=== PATIENT | female | born 1955 | race Caucasian/White ===

== ENCOUNTER 2019-08-13 16:18 | Emergency (ER) | payer BC ==
[2019-08-13] MEDS ORDERED: Sodium Chloride 0.9% 1,000 ML IV ONE (16:28)
[2019-08-13] MEDS ORDERED: Morphine 2 MG/ML Syringe IVPUSH ONE ×2 (16:31→17:33)
[2019-08-13] MEDS ORDERED: Ondansetron 4 MG/2 ML SDV IVPUSH ONE (16:31)
--- NOTE | 2019-08-13 17:23 | CR ---
2 views of the portable right ankle. INDICATION: Injury IMPRESSION: Fracture dislocation. Posterior dislocation of the ankle with fractures of the lateral and posterior malleolus. FINDINGS: Osseous structures: Posterior dislocation of the talus and fractures of the distal fibula with involvement of the posterior malleolus. On the frontal view the alignment shows no lateral displacement or medial displacement. Soft tissue swelling is noted. Miscellaneous: Prior fixation screws are present at the base of the 1st metatarsal. Dictated by Juarez Rose MD @ Aug 13 2019 5:22PM Signed by Dr. Juarez Rose @ Aug 13 2019 5:22PM
--- NOTE | 2019-08-13 17:25 | CR ---
CHEST 1 VIEW AP INDICATION: Chest pain IMPRESSION: Normal heart size and vascular pattern. Lungs are clear of focal opacities. Previous surgery with heidi at the left lung apex. No pneumothorax or pleural abnormality. Dictated by Juarez Rose MD @ Aug 13 2019 5:23PM Signed by Dr. Juarez Rose @ Aug 13 2019 5:23PM
--- NOTE | 2019-08-13 17:40 | EDM.PDOC ---
ED HPI GENERAL MEDICAL PROBLEM - General Chief Complaint: Lower Extremity Injury/Pain Stated Complaint: SLIPPED, POSSIBLY BROKE ANKLE Time Seen by Provider: 08/13/19 16:26 Source of Information: Reports: Patient History Limitations: Reports: No Limitations - History of Present Illness INITIAL COMMENTS - FREE TEXT/NARRATIVE: HISTORY AND PHYSICAL: History of present illness: Patient is a 63-year-old female who presents to the ED via EMS today with concern of right ankle injury that occurred just prior to arrival to the ED. Patient states she was carrying paint cans down the stairs and missed a step and fell down 2 steps hurting her right ankle. Patient states she did not hit her head or lose consciousness. Patient denies any other symptoms or concerns at this time. Patient denies fever, chills, chest pain, shortness of breath, or cough. Denies headache, neck stiff ness, change in vision, syncope, or near syncope. Denies nausea, vomiting, abdominal pain, diarrhea, constipation, or dysuria. Has not noted any blood in urine or stool. Patient has been eating and drinking appropriately. Review of systems: As per history of present illness and below otherwise all systems reviewed and negative. Past medical history: As per history of present illness and as reviewed below otherwise noncontributory. Surgical history: As per history of present illness and as reviewed below otherwise noncontributory. Social history: See social history for further information Family history: As per history of present illness and as reviewed below otherwise noncontributory. Physical exam: General: Patient is alert, oriented, and in no acute distress. Patient laying comfortably on exam table. HEENT: Atraumatic, normocephalic, pupils equal and reactive bilaterally, negative for conjunctival pallor or scleral icterus, mucous membranes moist, TMs normal bilaterally, throat clear, neck supple, nontender, trachea midline. No drooling or trismus noted. No meningeal signs. No hot potato voice noted. Lungs: Clear to auscultation, breath sounds equal bilaterally, chest nontender. Heart: S1S2, regular rate and rhythm without overt murmur Abdomen: Soft, nondistended, nontender. Negative for masses or hepatosplenomegaly. Negative for costovertebral tenderness. Pelvis: Stable nontender. Genitourinary: Deferred. Rectal: Deferred. Skin: Intact, warm, dry. No lesions or rashes noted. Extremities: Negative for cords or calf pain. Neurovascular unremarkable. The right ankle is obviously dislocated with some bruising on the superior ankle. Dorsalis pedis and posterior tibial pulses are intact via Doppler. Patient does have full sensation of the foot and has full range of motion of the digits of the foot. Patient does have full range of motion of the complete upper extremities and left lower extremity without pain or difficulty. Neuro: Awake, alert, oriented. Cranial nerves II through XII unremarkable. Cerebellum unremarkable. Motor and sensory unremarkable throughout. Exam nonfocal. Notes: Dr. Lawton directly involved in patient care Dr. Agustin, [facility] in [place], consulted on patient and accepting of transfer. Patient will transfer via private vehicle. Voices understanding and is agreeable to plan of care. Denies any further questions or concerns at this time. Diagnostics: CBC, CMP, UA, EKG, chest x-ray, troponin, PT/INR, ankle x-ray Therapeutics: Morphine, Zofran Prescription: None Impression: Fracture of lateral and posterior malleolus, right Dislocation of right ankle, reduced Plan: 1. Transfer to Dr. Agustin at [facility] in [place] via private vehicle Definitive disposition and diagnosis as appropriate pending reevaluation and review of above. Right Ankle Pain Score (Numeric/FACES): 6 - Related Data Allergies Allergy/AdvReac Type Severity Reaction Status Date / Time Penicillins Allergy Hives Verified 08/13/19 16:23 Home Meds: Home Meds Albuterol [Ventolin HFA] 2 puff INH Q6H 04/17/14 [History] Montelukast [Singulair] 10 mg PO BEDTIME 04/17/14 [History] Multivitamin [Multi-Vitamin Daily] 1 each PO DAILY 04/17/14 [History] Omeprazole [Prilosec] 20 mg PO DAILY 04/17/14 [History] Sertraline [Zoloft] 1.5 tab PO DAILY 04/17/14 [History] buPROPion [Wellbutrin XL] 300 mg PO DAILY 04/17/14 [History] Fish Oil/DHA/EPA [Fish Oil 1,200 MG] 1 each PO DAILY 04/18/14 [History] Lutein/Minerals/Vit A,C & E [Ocuvite] 1 tab PO DAILY 04/18/14 [History] Fluticasone/Vilanterol [Breo Ellipta 100-25 MCG Inhalation Kit] 1 puff ASDIRECTED 08/13/19 [History] Past Medical History - Past Health History Medical/Surgical History: Denies Medical/Surgical History Cardiovascular History: Reports: Hypertension Psychiatric History: Reports: Anxiety - Past Surgical History HEENT Surgical History: Reports: Oral Surgery GI Surgical History: Reports: Cholecystectomy Female Surgical History: Reports: Hysterectomy, Salpingo-Oophorectomy Musculoskeletal Surgical History: Reports: Other (See Below) Other Musculoskeletal Surgeries/Procedures:: foot sx Social & Family History - Family History Family Medical History: Noncontributory - Tobacco Use Smoking Status *Q: Never Smoker - Recreational Drug Use Recreational Drug Use: No Review of Systems - Review of Systems Review Of Systems: ROS reveals no pertinent complaints other than HPI. ED EXAM, GENERAL - Physical Exam Exam: See Below (See dictation) ED TRAUMA EXTREMITY PROCEDURES - Joint Reduction Site: Other (right ankle) Sedation: Other (pain medication) Pre-Procedure NV Status: Normal Post-Procedure NV Status: Normal Technique: Traction/Counter Traction Number of Attempts: 1 Post-Reduction Imaging: Acceptably Reduced Joint Reduction Complications: No Course - Vital Signs Last Recorded V/S: Last Vital Signs Temp 96.1 F 08/13/19 16:23 Pulse 66 08/13/19 16:23 Resp 18 08/13/19 16:23 BP 104/61 08/13/19 16:23 Pulse Ox 94 L 08/13/19 16:23 - Orders/Labs/Meds Orders: Active Orders 24 hr Category Date Time Status EKG Documentation Completion [RC] STAT Care 08/13/19 16:28 Active Ankle Min 3V Rt [CR] Stat Exams 08/13/19 17:22 Ordered COMPREHENSIVE METABOLIC PN,CMP [CHEM] Stat Lab 08/13/19 16:55 Received INR,PT,PROTHROMBIN TIME [COAG] Stat Lab 08/13/19 16:55 Received TROPONIN I [CHEM] Stat Lab 08/13/19 16:55 Received UA RFX KIRK AND CULT IF INDIC [URIN] Stat Lab 08/13/19 16:28 Ordered Labs: Laboratory Tests 08/13/19 Range/Units 16:55 WBC 11.67 H (4.0-11.0) K/uL RBC 5.19 (4.30-5.90) M/uL Hgb 14.3 (12.0-16.0) g/dL Hct 42.1 (36.0-46.0) % MCV 81.1 (80.0-98.0) fL MCH 27.6 (27.0-32.0) pg MCHC 34.0 (31.0-37.0) g/dL RDW Std Deviation 41.6 (28.0-62.0) fl RDW Coeff of Bryant 14 (11.0-15.0) % Plt Count 173 (150-400) K/uL MPV 8.80 (7.40-12.00) fL Neut % (Auto) 78.0 (48.0-80.0) % Lymph % (Auto) 12.9 L (16.0-40.0) % [place] % (Auto) 8.2 (0.0-15.0) % Eos % (Auto) 0.7 (0.0-7.0) % Baso % (Auto) 0.2 (0.0-1.5) % Neut # (Auto) 9.1 H (1.4-5.7) K/uL Lymph # (Auto) 1.5 (0.6-2.4) K/uL [place] # (Auto) 1.0 H (0.0-0.8) K/uL Eos # (Auto) 0.1 (0.0-0.7) K/uL Baso # (Auto) 0.0 (0.0-0.1) K/uL Nucleated RBC % 0.0 /100WBC Nucleated RBCs # 0 K/uL Meds: Medications Discontinued Medications Generic Name Dose Route Start Last Admin Trade Name Freq PRN Reason Stop Dose Admin Sodium Chloride 1,000 mls @ 999 mls/hr 08/13/19 16:28 08/13/19 16:59 Normal Saline IV 08/13/19 17:28 999 mls/hr BOLUS ONE Administration Morphine Sulfate 2 mg 08/13/19 16:31 08/13/19 16:59 Morphine IVPUSH 08/13/19 16:32 2 mg ONETIME ONE Administration Morphine Sulfate 2 mg 08/13/19 17:33 Morphine IVPUSH 08/13/19 17:34 ONETIME ONE Ondansetron HCl 4 mg 08/13/19 16:31 08/13/19 16:59 Zofran IVPUSH 08/13/19 16:32 4 mg ONETIME ONE Administration Departure - Departure Time of Disposition: 17:39 Disposition: DC/Tfer to Acute Hospital 02 Clinical Impression: Dislocation of right ankle joint Qualifiers: Encounter type: initial encounter Qualified Code(s): S93.04XA - Dislocation of right ankle joint, initial encounter Fracture of lateral malleolus Qualifiers: Encounter type: initial encounter Fracture type: closed Fracture alignment: displaced Laterality: right Qualified Code(s): S82.61XA - Displaced fracture of lateral malleolus of right fibula, initial encounter for closed fracture Fracture of posterior malleolus Qualifiers: Encounter type: initial encounter Fracture type: closed Laterality: right Qualified Code(s): S82.391A - Other fracture of lower end of right tibia, initial encounter for closed fracture - Discharge Information Referrals: PCP,Unknown [Primary Care Provider] - Forms: ED Department Discharge Additional Instructions: 1. Transfer to [facility], Emergency Room, Dr. Agustin [address] [facility] [address] Phone number: - My Orders Last 24 Hours: My Active Orders 08/13/19 16:28 EKG Documentation Completion [RC] STAT UA RFX KIRK AND CULT IF INDIC [URIN] Stat 08/13/19 16:55 COMPREHENSIVE METABOLIC PN,CMP [CHEM] Stat INR,PT,PROTHROMBIN TIME [COAG] Stat TROPONIN I [CHEM] Stat 08/13/19 17:22 Ankle Min 3V Rt [CR] Stat - Assessment/Plan Last 24 Hours: My Active Orders 08/13/19 16:28 EKG Documentation Completion [RC] STAT UA RFX KIRK AND CULT IF INDIC [URIN] Stat 08/13/19 16:55 COMPREHENSIVE METABOLIC PN,CMP [CHEM] Stat INR,PT,PROTHROMBIN TIME [COAG] Stat TROPONIN I [CHEM] Stat 08/13/19 17:22 Ankle Min 3V Rt [CR] Stat
[2019-08-13 17:51] LABS: BLOOD UREA NITROGEN,BUN 16 mg/dL (7.0-18.0); CARBON DIOXIDE,CO2 26.2 mmol/L (21.0-32.0); CHLORIDE,CL 104 mmol/L (98-107); GLUCOSE RANDOM 140 mg/dL (74-106); POTASSIUM,K 3.3 mmol/L (3.5-5.1); SODIUM,NA 142 mmol/L (136-145)
[2019-08-13] MEDS ORDERED: Ketorolac 30 MG/ML SDV IVPUSH ONE (17:52)
[2019-08-13 17:53] VITALS: BP 123/58; PULSE 71
--- NOTE | 2019-08-13 18:14 | CR ---
INDICATION: Postreduction. TECHNIQUE: Two views. COMPARISON: 1635 hours. IMPRESSION: A trimalleolar fracture is redemonstrated with interval reduction of the previously noted posterior dislocation, but persistent lateral displacement resulting in significant lateral tibiotalar subluxation. Dictated by Skip Rhodes MD @ 08/13/2019 6:12:33 PM Dictated by: Skip Rhodes MD @ 08/13/2019 18:12:39 (Electronically Signed)
== END 2019-08-13 18:26 ==
LOC: MW.ED 16:18
DX: S82.841A Displaced bimalleolar fracture of right lower leg, initial encounter for closed fracture (principal); I10 Essential (primary) hypertension; F41.9 Anxiety disorder, unspecified; Z79.899 Other long term (current) drug therapy; W10.9XXA Fall (on) (from) unspecified stairs and steps, initial encounter; X50.1XXA Overexertion from prolonged static or awkward postures, initial encounter; Y93.89 Activity, other specified
CPT/HCPCS: 27810; 36415; 71045; 73610; 80053; 84484; 85025; 85610; 93005; 96361; 96374; 96375; 99285; J1885; J2270; J2405; J7040